=== PATIENT | female | born 1955 | race African-American/Black ===

== ENCOUNTER 2022-03-07 08:19 | Observation (INO) | payer MEDICARE, OTHER ==
[~2022-03-07] VITALS: Ht 170.2 cm; Wt 88.9 kg
[2022-03-07] MEDS ORDERED: ONDANSETRON ODT 4 MG TAB.RAPDIS PO ONE (09:00)
[2022-03-07] MEDS ORDERED: MECLIZINE 12.5 MG TABLET. PO ONE (09:00)
--- NOTE | 2022-03-07 09:05 | PHYS DOC ---
Past History Past Surgical History: Other Additional Past Surgical Histo: left knee sx Alcohol Use: None General Adult EDM: Chief Complaint: DIZZY/LIGHT HEADED HPI: HPI: Patient is a 67-year-old female coming in for spinning sensation and nausea and vomiting. Patient states over the past 2 weeks she has woken up with a spinning sensation as soon as he sits up out of bed. Patient states she has not been symptoms when she is lying down and they began when she sits up. Patient states that she usually has an episode of emesis and then the sensation goes away and she is fine drought the day. Patient is in from out of town and came in today because the sensation does not go away and returns with any sudden movements. Denies any diplopia, hearing loss, tinnitus. Patient denies any recent illness. Patient does state that she had her ears cleaned out due to severe cerumen impaction about 2 months ago. Denies any headaches. Patient denies any past medical history states she only takes vitamin D and vitamin B12 supplements. Review of Systems: Review of Systems: All other systems within normal limits except for as noted in the HPI Current Medications: Current Meds: Current Medications Medications (Trade) Dose Ordered Sig/Jennifer Start Time Stop Time Status Last Admin Dose Admin Meclizine HCl (Antivert) 25 mg 1X ONCE 03/07/22 09:00 03/07/22 09:01 Ondansetron HCl (Zofran Odt) 4 mg 1X ONCE 03/07/22 09:00 03/07/22 09:01 Allergies: Allergies: Allergies Coded Allergies Type Severity Reaction Last Updated Verified No Known Drug Allergies 03/07/22 No Physical Exam: PE: Constitutional: Well developed, well nourished, no acute distress, non-toxic appearance. [] HENT: Normocephalic, atraumatic, bilateral external ears normal, nose normal. Mild cerumen in bilateral ear canals, TMs unremarkable Eyes: PERRLA, conjunctiva normal, no discharge. No nystagmus, extraocular wounds intact [] Neck: No rigidity, supple, no stridor. [] Cardiovascular: Regular rate and rhythm, brisk cap refill [] Lungs & Thorax: Non labored symmetric respirations, no tachypnea or respiratory distress [] Abdomen: Soft, nondistended. Skin: Warm, dry, no erythema, no rash. [] Back: Unremarkable Extremities: No deformities, range of motion grossly intact, no lower extremity edema [] Neurologic: Alert and oriented X 3, no focal deficits noted. [] Psychologic: Affect normal, judgement normal, mood normal. [] Current Patient Data: Vital Signs: Vital Signs Date Time Temp Pulse Resp B/P (MAP) Pulse Ox O2 Delivery O2 Flow Rate FiO2 03/07/22 08:42 98.1 67 18 150/73 (98) 100 Room Air EKG: EKG: Sinus rhythm, heart rate 66 bpm, no ectopy, normal intervals, no STEMI. [] Radiology/Procedures: Radiology/Procedures: [][place] [address] IMAGING REPORT Signed PATIENT: ROBINSON SANTANA ACCOUNT: [id number] : 1955 LOCATION: ER AGE: 67 SEX: F EXAM STATUS: REG ER ORD. PHYSICIAN: ALBERT LOPEZ MD REASON: vertigo PROCEDURE: CT HEAD WO CONTRAST CT brain without contrast. HISTORY: Vertigo CT scan of brain was done without contrast. Sinuses are clear. Mastoids are normally aerated. There is no fluid in the middle ear. There is no intracranial hemorrhage or subdural hematoma. Ventricles are normal in size. There is no mass effect or shift of the midline. An acute CVA is not identified. IMPRESSION: 1. No intracranial hemorrhage or acute finding noted. RS Compliance Statement: One or more of the following individualized dose reduction techniques were utilized for this examination: 1. Automated exposure control 2. Adjustment of the mA and/or kV according to patient size 3. Use of iterative reconstruction technique Electronically signed by: Jonny Escobar MD (03/07/2022 9:47 AM) [id number] DICTATED AND SIGNED BY: JONNY ESCOBAR MD DATE: 03/07/22929 CC: ALBERT LOPEZ MD; PCP,NO ~ Heart Score: C/O Chest Pain: No Risk Factors: Risk Factors: DM, Current or recent (<one month) smoker, HTN, HLP, family history of CAD, obesity. Risk Scores: Score 0 - 3: 2.5% MACE over next 6 weeks - Discharge Home Score 4 - 6: 20.3% MACE over next 6 weeks - Admit for Clinical Observation Score 7 - 10: 72.7% MACE over next 6 weeks - Early Invasive Strategies Course & Med Decision Making: Course & Med Decision Making Pertinent Labs and Imaging studies reviewed. (See chart for details) [] Dragon Disclaimer: Dragon Disclaimer: This electronic medical record was generated, in whole or in part, using a voice recognition dictation system. Departure Departure: Impression: Primary Impression: Vertigo Disposition: ADMITTED INPATIENT Admitting Physician: Larry Jackman Condition: STABLE Referrals: PCP,NO (PCP) ALBERT LOPEZ MD March 07, 2022 09:05
[2022-03-07 09:11] LABS: BASO % 1 % (0-3); EOS # 0.1 x10^3/uL (0.0-0.7); EOS % 2 % (0-3); HEMOGLOBIN 12.3 g/dL (12.0-15.5); LYMPH # 1.5 x10^3/uL (1.0-4.8); LYMPH % 29 % (24-48); MEAN CORPUSCULAR HEMOGLOBIN 31 pg (25-35); MEAN CORPUSCULAR HGB CONC 33 g/dL (31-37); MEAN CORPUSCULAR VOLUME 94 fL (79-100); MONO # 0.3 x10^3/uL (0.0-1.1); MONO % 6 % (0-9); NEUT # 3.2 x10^3uL (1.8-7.7); NEUT % 63 % (31-73); PLATELET COUNT 197 x10^3/uL (140-400); RED BLOOD COUNT 3.95 x10^6/uL (3.50-5.40); RED CELL DISTRIBUTION WIDTH 13.3 % (11.5-14.5); WHITE BLOOD COUNT 5.1 x10^3/uL (4.0-11.0)
[2022-03-07 09:15] LABS: CREATININE 0.7 mg/dL (0.6-1.0); GFR 100.7; POTASSIUM 3.4 mmol/L (3.5-5.1)
[2022-03-07 09:21] LABS: ALBUMIN 3.5 g/dL (3.4-5.0); ALBUMIN/GLOBULIN RATIO 1.1 (1.0-1.7); MAGNESIUM 2.2 mg/dL (1.8-2.4); PHOSPHORUS 2.7 mg/dL (2.6-4.7); TOTAL BILIRUBIN 0.5 mg/dL (0.2-1.0); TOTAL PROTEIN 6.6 g/dL (6.4-8.2)
--- NOTE | 2022-03-07 09:49 | RAD ---
CT brain without contrast. HISTORY: Vertigo CT scan of brain was done without contrast. Sinuses are clear. Mastoids are normally aerated. There i s no fluid in the middle ear. There is no intracranial hemorrhage or subdural hematoma. Ventricles ar e normal in size. There is no mass effect or shift of the midline. An acute CVA is not identified. IMPRESSION: 1. No intracranial hemorrhage or acute finding noted. PQRS Compliance Statement: One or more of the following individualized dose reduction techniques were utilized for this examinat ion: 1. Automated exposure control 2. Adjustment of the mA and/or kV according to patient size 3. Use of iterative reconstruction technique Electronically signed by: Jonny Escobar MD (03/07/2022 9:47 AM) [id number]
[2022-03-07] MEDS ORDERED: METOCLOPRAMIDE HCL 10 MG/2 ML VIAL. IVP ONE (10:15)
[2022-03-07] MEDS ORDERED: ACETAMINOPHEN 325 MG TABLET PO PRN (12:30)
[2022-03-07] MEDS ORDERED: ONDANSETRON PF 4 MG/2 ML VIAL. IVP PRN (12:30)
[2022-03-07 13:33] VITALS: BP 128/77
[2022-03-07] MEDS: MECLIZINE 12.5 MG TABLET. PO SCH ×2 (14:00→22:00)
[2022-03-07] MEDS: diazePAM 2 MG TABLET. PO SCH ×2 (14:00→22:00)
[2022-03-07 19:18] VITALS: BP 102/68
[2022-03-07 22:04] VITALS: BP 105/64
[2022-03-08 03:00] VITALS: BP 99/64
[2022-03-08 05:50] VITALS: BP 110/73
[2022-03-08] MEDS: diazePAM 2 MG TABLET. PO SCH (06:00)
[2022-03-08 06:52] LABS: BASO % 1 % (0-3); EOS # 0.1 x10^3/uL (0.0-0.7); EOS % 3 % (0-3); HEMATOCRIT 34.6 % (36.0-47.0); HEMOGLOBIN 11.5 g/dL (12.0-15.5); LYMPH # 2.2 x10^3/uL (1.0-4.8); LYMPH % 47 % (24-48); MEAN CORPUSCULAR HEMOGLOBIN 31 pg (25-35); MEAN CORPUSCULAR HGB CONC 33 g/dL (31-37); MEAN CORPUSCULAR VOLUME 94 fL (79-100); MONO # 0.4 x10^3/uL (0.0-1.1); MONO % 8 % (0-9); NEUT % 42 % (31-73); PLATELET COUNT 190 x10^3/uL (140-400); RED BLOOD COUNT 3.68 x10^6/uL (3.50-5.40); RED CELL DISTRIBUTION WIDTH 13.3 % (11.5-14.5); WHITE BLOOD COUNT 4.8 x10^3/uL (4.0-11.0)
[2022-03-08 06:54] LABS: CALCIUM 8.8 mg/dL (8.5-10.1); CREATININE 0.7 mg/dL (0.6-1.0); GFR 100.7; POTASSIUM 4.1 mmol/L (3.5-5.1)
[2022-03-08] MEDS: MECLIZINE 12.5 MG TABLET. PO SCH (08:33)
--- NOTE | 2022-03-08 11:00 | HP ---
DATE OF SERVICE: 03/08/2022 ADMIT DATE: 03/07/2022 ATTENDING PHYSICIAN: Dr. Jackman. CHIEF COMPLAINT: Nausea and dizziness. HISTORY OF PRESENT ILLNESS: The patient is active, alert 67-year-old female who is in town for a . Her sister . For the last 2 weeks, she has had dizziness and the room spins when she moves abruptly. She has had an episode of emesis. She has also been on the rope. Workup in the ED was fairly unremarkable. No headache. She was diagnosed with acute vertigo. She was started on meclizine and diazepam and admitted to the hospitalist service. PAST MEDICAL HISTORY: Fairly unremarkable. She is otherwise healthy. She is not on any prescription meds. SURGICAL HISTORY: Left knee arthroplasty. SOCIAL HISTORY: She is a nonsmoker, nondrinker. She is retired. She drove to [place] from [place]. FAMILY HISTORY: Her mom lived to , of old age in a shelter, she had Alzheimer's. Father of heart disease in his 70s. REVIEW OF SYSTEMS: No COVID exposure. She has had symptoms on and off for over a week now. This is improved by the time I saw her. MEDICATIONS: She is not on any prescription meds, only oral medication and supplements. PHYSICAL EXAMINATION: GENERAL: When I saw her, this is a pleasant, middle-aged female. INITIAL VITAL SIGNS: Showed a blood pressure of 110/73, pulse is 50 and regular. She is afebrile. Oxygen saturation 98% on room air. HEENT: Head is without trauma. Pupils are reactive. There is no nystagmus. Ears are normal. Throat is clear. NECK: Supple, no bruits. LUNGS: Clear. CARDIOVASCULAR: Showed regular heart tones. ABDOMEN: Soft. No guarding. EXTREMITIES: Show no cyanosis or edema. NEUROLOGIC FINDINGS: Focally intact. Speech is fluent. Symptoms were improved. The obligatory CT of the head showed no acute intracranial process. PERTINENT LABORATORY STUDIES: The hemoglobin on admission was 12.3 g/dL with a white count of 5100. Electrolytes, BUN and creatinine all within normal range. Nonfasting blood sugar 96. Creatinine 0.7 mg/dL. Serology negative for coronavirus. ASSESSMENT: 1. A 67-year-old female with acute vertigo. 2. Nausea and vertiginous symptoms resolved. PLAN: 1. Observation status. 2. Meclizine scheduled. 3. Diet as tolerated. JULIEN/GEOFF/ALEXANDREA DR: Kandice TID: [id number]
--- NOTE | 2022-03-08 12:26 | DS ---
DATE OF DISCHARGE: 03/08/2022 ATTENDING PHYSICIAN: Dr. Jackman. FINAL DISCHARGE DIAGNOSES: 1. Acute vertigo, resolving. 2. Nausea and vomiting, resolved. HISTORY AND PHYSICAL: The patient is a pleasant, alert 67-year-old female who is here visiting from out of town for a sister's . She had dizziness and nausea. Workup in the ED showed acute vertigo. CT of the head was nondiagnostic and interpreted as normal. PHYSICAL EXAMINATION: Please see the dictated note. PERTINENT LABORATORY AND X-RAY STUDIES: Negative coronavirus swab. Chemistry within normal range. Hemoglobin maintained at 12.3 grams with a white count of 5100. COURSE IN HOSPITAL: The patient was admitted overnight. She was started on scheduled meclizine and diazepam. She did better by the second hospital day, her vertiginous symptoms have improved. She wanted to go home. I felt this is reasonable. Whether or not she is able to make the whole drive, I suggest that she break her trip up into several portions. I wrote her a script for meclizine 25 mg t.i.d. Strong encouragement to avoid any sudden movements. She is aware that she is stable. She was able to ambulate without any issues. The patient was then discharged from our hospital in stable condition with explicit instructions and followup care. She will see her primary physician when she returns home. Once again, she was given a script for meclizine 25 mg t.i.d. JULIEN/SUSANA/ALEXANDREA DR: JULIEN/reagan TID: [id number]
== END 2022-03-08 10:16 | disposition home or self-care (01) ==
LOC: ER 08:19 → ER HOLD 12:20 → 1 SOUTH 13:29
PROVIDERS: ADMIT Hospitalist; ATTEND Hospitalist
DX: R42 Dizziness and giddiness (principal); Z20.822 Contact with and (suspected) exposure to COVID-19; R11.2 Nausea with vomiting, unspecified; Z96.652 Presence of left artificial knee joint; Z63.4 Disappearance and death of family member; Z79.899 Other long term (current) drug therapy; Z98.890 Other specified postprocedural states
CPT/HCPCS: 36415; 70450; 80048; 80053; 83735; 84100; 85025; 87426; 93005; 96374; 96375; 99285; G0378; J2405; J2765; Q0162; U0003; G0379